=== PATIENT | female | born 2000 | race Caucasian/White ===

== ENCOUNTER 2025-02-25 04:32 | Emergency (ER) | payer MEDICAID ==
[~2025-02-25] VITALS: Ht 165.1 cm; Wt 77.1 kg
[~2025-02-25 04:32] MED LIST: AVPAK AZITHROM250 M1 PO; CIPRO500 MG PO; MILLIPRED5 MG PO; MOTRIN; MOTRIN CHI100 MG/51 PO; MOTRIN100 MG PO; MUCINEX1200 M1 PO; NKHM; TAMIFLU30 MG PO; THERAFLU1 PDS PO; TYLENOL; ZITHROMAX Z PA250 MG PO; Zithromax200 MG/5 M PO
[2025-02-25] MEDS ORDERED: Amoxicillin/Clavulanate Pota 875 MG TAB PO ONE (05:15)
[2025-02-25] MEDS ORDERED: Tdap Vaccine 0.5 ML SYR (Adult Vaccine) IM ONE (05:15)
[2025-02-25] MEDS ORDERED: AMOX-CLAV 875-1 EACH PO (05:52)
== END 2025-02-25 06:12 | disposition home or self-care (01) ==
LOC: ED 04:32
DX: S61.250A Open bite of right index finger without damage to nail, initial encounter (principal); Z79.899 Other long term (current) drug therapy; Z90.89 Acquired absence of other organs; W55.01XA Bitten by cat, initial encounter; Y93.89 Activity, other specified; Y92.89 Other specified places as the place of occurrence of the external cause; Y99.8 Other external cause status